=== PATIENT | male | born 1955 | race Caucasian/White ===

== ENCOUNTER → 2020-03-23 | Outpatient (CLI) | payer MEDICARE, OTHER ==
[~2020-03-23] MED LIST: LISINOPRIL30 MG PO; NORVASC5 MG PO
== END ==
LOC: M.LAB 09:12
PROVIDERS: ATTEND Surgery
DX: Z01.812 Encounter for preprocedural laboratory examination (principal); Z20.828 Contact with and (suspected) exposure to other viral communicable diseases; R22.9 Localized swelling, mass and lump, unspecified

== ENCOUNTER → 2020-03-26 | Day surgery (SDC) | payer MEDICARE, OTHER ==
--- NOTE | ~2020-03-26 | OP ---
[facility] [address] [place] [address] OPERATIVE REPORT Name: SHAWNA JEFFRIES Room: [facility]#: [id number] Admission: 03/26/20 Attend Phys: Elmo Holley Discharge: Date of : 53 Report #: [id number] THIS REPORT FOR: //name// cc: JHONATAN CRAWFORD APRN, STEFFANY APRN ~ CC: Elmo CRAWFORD DATE OF SERVICE: 03/26/2020 PREOPERATIVE DIAGNOSIS: Right back benign mass, 3 cm. POSTOPERATIVE DIAGNOSIS: Right back benign mass, 3 cm. OPERATION: Excision of benign right back mass, 3 cm. SURGEON: Elmo Holley MD ANESTHESIA: General. ESTIMATED BLOOD LOSS: Minimal. SPECIMEN: Right back mass. DESCRIPTION OF PROCEDURE: After informed consent was obtained, the patient was brought to the operating room and placed supine. SCDs were placed and working, preoperative antibiotics were administered, local monitored anesthesia was induced. The area was prepped and draped in the usual sterile fashion. The area was instilled with 10 mL of 1% lidocaine plain. A 3 cm elliptical incision was made around the lesion. Cautery dissection was made down through the subcutaneous tissue. This was an epidermal inclusion cyst. It was fully dissected around and excised. There were good margins on all sides. Skin was then reapproximated with 3-0 nylon in interrupted fashion. Sterile dressings were applied. COMPLICATIONS: None. DISPOSITION: The patient was taken to recovery in satisfactory condition. By: [id number] Holley MD /nt
[2020-03-26 09:45] LABS: ABSOLUTE EOSINOPHILS 0.2 thou/uL (0.0-0.7); ABSOLUTE LYMPHOCYTES 2.3 thou/uL (0.8-5.3); ABSOLUTE MONOCYTES 0.6 thou/uL (0.0-1.2); ABSOLUTE NEUTROPHILS 3.2 thou/uL (1.6-8.1); BASOPHILS 0.4 %; EOSINOPHILS 3.9 %; HEMATOCRIT 41.2 % (42.0-52.0); HEMOGLOBIN 13.8 gm/dL (14.0-18.0); LYMPHOCYTES 36.1 %; MCHC 33.5 g/dL (28.0-37.0); MCV 95.5 fL (80.0-100.0); MONOCYTES 8.9 %; MPV 8.1 fl. (7.2-11.1); NUCLEATED RBCS 0 /100WBC; PLATELET COUNT* 228 thou/uL (150-400); POLYS 50.7 %; RBC 4.31 mil/uL (4.50-6.00); RDW-CV 13.9 % (10.5-14.5); WBC 6.3 thou/uL (4.0-11.0)
[2020-03-26 09:53] LABS: CALCIUM 8.4 mg/dL (8.5-10.1); POTASSIUM 4.1 mmol/L (3.5-5.1)
--- NOTE | 2020-03-26 13:06 | EKG ---
[place] [address] ELECTROCARDIOGRAM REPORT Name: SHAWNA JEFFRIES Room: [facility]#: [id number] Admission: 03/26/20 Attend Phys: Elmo Galicia Discharge: Date of : 53 Date of Service: 03/26/2031 Report #: [id number] THIS REPORT FOR: //name// [facility] Test Date: 2020-03-26 Test Time: 09:31:11 Pat Name: SHAWNA NESHA Department: Room: Gender: Check Services Clerk: ICU : 1955 Requested By: Elmo Holley Order Number: [id number] Joe MD: Gonzalo Lynne Measurements Intervals [place] Rate: 60 P: 47 NE: 166 QRS: 29 QRSD: 86 T: 18 QT: 386 QTc: 386 Interpretive Statements Sinus rhythm Minimal ST elevation, anterior leads Baseline wander in lead(s) V2 No previous ECG available for comparison Electronically Signed On 03-26-2020 13:06:47 [employer]PERATIONS STAFF [employer]IST [employer]URITY by Gonzalo Lynne [email or web address] <ELECTRONICALLY SIGNED> By: Gonzalo Lynne MD, [facility] 03/26/20 1306 0 0 Gonzalo Lynne MD, [facility] /EPI
--- NOTE | 2020-03-30 15:11 | PATH ---
[address] [address] PATHOLOGY RPT PROCEDURE Name: SHAWNA JEFFRIES [id number]: 03/26/20 Date of : 53 Discharge: Report #: [id number] Path Case #: [id number] [facility] Accession Number: [id number] . 01 Material submitted: . back - RIGHT BACK MASS. Modifiers: right . 01 Clinical history: . BACK MASS . 02 Diagnosis: Right back mass: - Benign skin with large epidermal inclusion cyst showing chronic inflammation and fibrosis. . (DOMINGO:mml; 03/30/2020) [facility] 03/30/2020 1228 Local . 02 Electronically signed: . Cb Douglas MD, Pathologist NPI- [id number] . 01 Gross description: . The specimen is received in formalin, labeled "Jeffries, Shawna, R back mass" and consists of a disrupted segment of fowler skin with underlying yellow orange tissue measuring 4.8 x 2.8 x 1.6 cm. Sectioning reveals a cyst measuring up to 2.9 cm that is devoid of contents. Director Of Diagnostic Imaging sections are submitted in A1. (SDY; 03/29/2020) [facility]U 03/29/2020 1253 Local . 02 Pathologist provided ICD-10: L72.0, L98.9, L90.5 . 02 CPT . 203454 Specimen Comment: A courtesy copy of this report has been sent to [phone], [phone] Specimen Comment: [id number] Specimen Comment: Report sent to / DR CRAWFORD Performed at: 01 [facility] [address], [place], [place] [id number] MD Jose Frey MD Phone: [phone] Performed at: [address] [facility] [address] [address], [place] [id number] MD Cb Douglas MD Phone: [phone]
== END | disposition home or self-care (01) ==
LOC: M.SUR 05:31
PROVIDERS: ATTEND Surgery
DX: L72.0 Epidermal cyst (principal); L98.9 Disorder of the skin and subcutaneous tissue, unspecified; L90.5 Scar conditions and fibrosis of skin; Z79.899 Other long term (current) drug therapy